=== PATIENT | female | born 1985 | race Hispanic/Latino ===

== ENCOUNTER 2021-05-21 08:02 | Outpatient (CLI) | payer OTHER | END 2021-05-21 08:03 | disposition home or self-care (01) | LOC: BICMRI 08:02 | PROVIDERS: ATTEND Family Medicine | DX: G90.522 Complex regional pain syndrome I of left lower limb (principal); M47.816 Spondylosis without myelopathy or radiculopathy, lumbar region; M47.815 Spondylosis without myelopathy or radiculopathy, thoracolumbar region | CPT/HCPCS: 72148 ==

== ENCOUNTER 2023-04-13 11:03 | Day surgery (SDC) | payer OTHER ==
[2023-04-13] MEDS ORDERED: Bupivacaine PF 0.5% 30 ML VIAL ONE ×2 (12:03→15:02)
[2023-04-13] MEDS ORDERED: Midazolam HCl 2 mg/2 ml Vial ONE ×2 (12:03→15:07)
[2023-04-13] MEDS ORDERED: fentaNYL 50 mcg/mL 1 mL Vial ONE (12:03)
[2023-04-13] MEDS ORDERED: Bupivacaine HCl 0.5%/Epinephrine 1:200,000/PF 30 ml Vial ONE ×2 (12:18→15:02)
[2023-04-13] MEDS ORDERED: Sodium Chloride 0.9% 100 ML ONE (12:37)
[2023-04-13] MEDS ORDERED: CEFAZOLIN 2 GM VIAL ONE (12:38)
[2023-04-13] MEDS ORDERED: Bupivacaine/Epinephrine 0.25% 30 ML VIAL ONE (15:02)
[2023-04-13] MEDS ORDERED: Dexmedetomidine 200 MCG/2 ML VIAL ONE (15:08)
[2023-04-13] MEDS ORDERED: fentaNYL PF 100 MCG/2 ML SYRINGE ONE (15:08)
[2023-04-13] MEDS ORDERED: HYDROmorphone 0.5 MG/0.5 ML SYRINGE ONE (15:08)
[2023-04-13] MEDS ORDERED: PROPOFOL 200 MG/20 ML VIAL ONE (15:29)
[2023-04-13] MEDS ORDERED: Lidocaine 1% PF 5 ML VIAL ONE (15:29)
[2023-04-13] MEDS ORDERED: Ondansetron PF 4 MG/2 ML Vial ONE (15:29)
[2023-04-13] MEDS ORDERED: Metoclopramide HCl 10 MG/2 ML VIAL ONE (15:29)
[2023-04-13] MEDS ORDERED: Dexamethasone 20 MG/5 ML VIAL ONE (15:29)
== END 2023-04-13 18:33 | disposition home or self-care (01) ==
LOC: SDC 11:03
PROVIDERS: ATTEND Orthopaedic Surgery
PROC: 0PSL04Z Reposition Left Ulna with Internal Fixation Device, Open Approach (ICD-10-PCS; principal; 2023-04-13)
PROC: 0PSJ04Z Reposition Left Radius with Internal Fixation Device, Open Approach (ICD-10-PCS; principal; 2023-04-13)
DX: S52.572A Other intraarticular fracture of lower end of left radius, initial encounter for closed fracture (principal); S52.612A Displaced fracture of left ulna styloid process, initial encounter for closed fracture; G89.29 Other chronic pain; E78.00 Pure hypercholesterolemia, unspecified; W18.30XA Fall on same level, unspecified, initial encounter
CPT/HCPCS: C1713; C1894; J1100; J1170; J2250; J2405; J2704; J2765; J3010; J3490; S0020

== ENCOUNTER 2023-10-07 10:43 | Day surgery (SDC) | payer OTHER ==
[2023-10-05 14:12] VITALS: BMI 36.6
[2023-10-07] MEDS ORDERED: Sodium Chloride 0.9% 100 ML ONE (12:17)
[2023-10-07] MEDS ORDERED: CEFAZOLIN 2 GM VIAL ONE (12:17)
[2023-10-07] MEDS ORDERED: fentaNYL 50 mcg/mL 1 mL Vial ONE (12:40)
[2023-10-07] MEDS ORDERED: Ondansetron PF 4 MG/2 ML Vial ONE ×2 (13:02→13:06)
[2023-10-07] MEDS ORDERED: PROPOFOL 200 MG/20 ML VIAL ONE ×2 (13:02)
[2023-10-07] MEDS ORDERED: Propofol 500 MG/50 ML VIAL ONE (13:07)
[2023-10-07] MEDS ORDERED: Bupivacaine PF 0.5% 30 ML VIAL ONE (13:12)
== END 2023-10-07 14:52 | disposition home or self-care (01) ==
LOC: SDC 10:43
PROVIDERS: ATTEND Orthopaedic Surgery
PROC: 0RPP0JZ Removal of Synthetic Substitute from Left Wrist Joint, Open Approach (ICD-10-PCS; principal; 2023-10-07)
DX: T84.89XA Other specified complication of internal orthopedic prosthetic devices, implants and grafts, initial encounter (principal); Y79.2 Prosthetic and other implants, materials and accessory orthopedic devices associated with adverse incidents
CPT/HCPCS: J2405; J2704; J3010; J3490; S0020